=== PATIENT | female | born 1950 | race Hispanic/Latino ===

== ENCOUNTER → 2022-07-03 | Outpatient (CLI) | payer MEDICARE ==
[~2022-07-03] MED LIST: AEC81 PO; ASCO500T20 PO; ATOR10 PO; CALCIUM CITRATE PO; CARV25TA PO; CILO100T3 PO; CLOP75TA32 PO; FERR-82 PO; FURO40TA5 PO; INSLAN SQ; INSREG SQ; ISOS30TA92 PO; LEVO25CA4 PO; LOSA50TA64 PO; OMEP20CA12 PO; SAXA5TAB PO; TRAM50TA4 PO; UBID10CA6 PO; VITAMIN D3 PO; ZINC220T4 PO
== END | disposition home or self-care (01) ==
LOC: RAH 10:04
PROVIDERS: ATTEND Internal Medicine Cardiovascular Disease
DX: I50.22 Chronic systolic (congestive) heart failure (principal); M47.815 Spondylosis without myelopathy or radiculopathy, thoracolumbar region
CPT/HCPCS: 71046